=== PATIENT | female | born 1975 | race Caucasian/White ===

== ENCOUNTER 2017-12-07 03:28 | Emergency (ER) | payer SELFPAY ==
[~2017-12-07] VITALS: Ht 162.6 cm; Wt 90.7 kg
[~2017-12-07 03:28] MED LIST: PANT40TA2 PO
[2017-12-07] MEDS ORDERED: KETOROLAC 60 MG/2 ML VIAL IM STA (03:39)
[2017-12-07] MEDS ORDERED: AMOXICILLIN 500 MG (POLYMOX) CAP PO STA (03:39)
[2017-12-07] MEDS ORDERED: RX-HYDROCODONE/APAP 5/325 MG #4 TAB PK PO PRN (03:45)
--- NOTE | 2017-12-07 03:46 | ED EENT ---
History of Present Illness General Stated Complaint: THROAT & TONGUE SWOLLEN Source: patient Exam Limitations: no limitations History of Present Illness Date Seen by Provider: Dec 07, 2017 Time Seen by Provider: 03:30 Initial Comments Here with complaint of pain to the left posterior lower jaw with swelling at the same site. Denies difficulty with swallowing but does have pain around that area. Denies worst changes. No fever or chills. Does have dental problems and states that she thinks she has a bad tooth. Timing/Duration: gradual, yesterday Severity: moderate Location: mouth, facial, dental Prearrival Treatment: over the counter meds Associated Symptoms: No cough, No drooling, No ear drainage, facial pain/ swelling, No fever, No nasal congestion/drainage, No sinus infection, No sore throat, tooth pain, No voice change Allergies and Home Medications Allergies Coded Allergies: No Known Drug Allergies (Unverified , 02/13/16) Home Medications Pantoprazole Sodium 40 Mg Tablet.dr, 40 MG PO DAILY Prescribed by: NICOLLE MARCIAL on 02/13/16 0041 Patient Home Medication List Home Medication List Reviewed: Yes Review of Systems Constitutional: see HPI, No chills, No fever Ears: No Symptoms Reported Nose: no symptoms reported Mouth: see HPI Throat: see HPI Respiratory: no symptoms reported Cardiovascular: no symptoms reported Gastrointestinal: no symptoms reported Skin: no symptoms reported, No change in color, No rash Past Ybcstra-Syvpqa-Mecuon Hx Patient Social History Alcohol Use: Occasionally Uses Recreational Drug Use: No Smoking Status: Current Everyday Smoker Recent Foreign Travel: No Contact w/Someone Who Travel: No Surgeries History of Surgeries: Yes Surgeries: Section Respiratory History of Respiratory Disorde: Yes Respiratory Disorders: Asthma Cardiovascular History of Cardiac Disorders: No Neurological History of Neurological Disord: No Reproductive System Hx Reproductive Disorders: No Genitourinary History of Genitourinary Disor: No Gastrointestinal History of Gastrointestinal Di: Yes Gastrointestinal Disorders: Gastroesophageal Reflux Musculoskeletal History of Musculoskeletal Dis: No Psychosocial History of Psychiatric Problem: No Blood Transfusions Adverse Reaction to a Blood Tr: No Reviewed Nursing Assessment Reviewed/Agree w Nursing PMH: Yes Physical Exam General Appearance: WD/WN, no apparent distress Eyes: bilateral eye normal inspection, bilateral eye PERRL Nose: normal inspection, active bleeding Mouth/Throat: pharynx normal, dental tenderness, No excessive drooling, mandibular swelling, No maxillary swelling, No pharynx swelling, No pharynx tenderness, No tongue swollen, No tonsillar exudate, No tonsillar swelling, No trismus, No uvula swelling, No voice changes, other (posterior tooth with swelling on the lingual surface without obvious abscess. There is some dental decay in the posterior left lower tooth.) Progress/Results/Core Measures Results/Orders My Orders Orders - HE SHORE MD Ketorolac Injection (Toradol Injection) (12/07/17 03:39) Amoxicillin 1000mg Po (12/07/17 03:39) Rx-Hydrocodone/Apap 5-325 Mg (Rx-Vicodin (12/07/17 03:45) Progress Note : Progress Note Seen and evaluated. Amoxicillin 1000 mg by mouth. Toradol 60 mg IM. Hydrocodone go pack given. Discharged home with return precautions. Patient verbalize understanding instructions and agreement with plan. Departure Impression Impression: Primary Impression: Dental abscess Additional Impression: Dental caries Disposition: 01 HOME, SELF-CARE Condition: Improved Departure-Patient Inst. Decision time for Depature: 03:47 Referrals: NO,LOCAL PHYSICIAN (PCP/Family) Primary Care Physician Patient Instructions: Dental Pain (DC) Add. Discharge Instructions: Take medications as directed. You may take ibuprofen 800 mg every 8 hours as needed for pain. You may take acetaminophen/Tylenol 1000 mg every 8 hours as needed for pain if you are not taking pain pills given to you at the ER. You may take Tylenol/acetaminophen with the other prescribed pain medicine (tramadol ). You may rinse your mouth 2 or 3 times daily with saltwater. Continue to brush your teeth. You need to see a dentist TOM. Return for worse pain, fever , vomiting, weakness, breathing problems or other concerns as needed. Scripts Tramadol HCl (Tramadol HCl) 50 Mg Tablet 50 MG PO Q6H Y for PAIN, #20 TAB 0 Refills Prov: HE SHORE MD 12/07/17 Amoxicillin (Amoxicillin) 500 Mg Capsule 500 MG PO TID, #30 CAP 0 Refills Prov: HE SHORE MD 12/07/17 HE SHORE MD Dec 07, 2017 03:46
[2017-12-07] MEDS ORDERED: TRAM50TA2 PO (03:49)
[2017-12-07] MEDS ORDERED: AMOX500C2 PO (03:49)
[2017-12-07 04:08] VITALS: BP 0/0
== END 2017-12-07 04:08 | disposition home or self-care (01) ==
LOC: EDUNIT# 03:28 → ER 03:31
DX: K04.7 Periapical abscess without sinus (principal); K02.9 Dental caries, unspecified; K21.9 Gastro-esophageal reflux disease without esophagitis; J45.909 Unspecified asthma, uncomplicated; F17.210 Nicotine dependence, cigarettes, uncomplicated; Z87.59 Personal history of other complications of pregnancy, childbirth and the puerperium
CPT/HCPCS: 96372; 99284